=== PATIENT | male | born 1955 | race Caucasian/White ===

== ENCOUNTER 2021-03-09 17:43 | Emergency (ER) | payer OTHER, MEDICARE ==
[~2021-03-09 17:43] MED LIST: ACETAMINOPHEN325 MG PO; ALIGN4 MG PO; CABERGOLINE0.5 MG PO; CIALIS5 MG PO; CLOTRIMAZOLE15 GM TOP; COUGHTAB200 MG PO; ELIQUIS2.5 MG PO; ELIQUIS5 MG PO; FLEXERIL10 MG PO; HEPARIN 3010 UNIT/1 IVF; METAMUCIL1 DOSE PO; NEURONTIN400 MG PO; NORMAL SALINE F10 ML IVF; ONDANSETRON ODT4 MG SL; OXAYDO7.5 MG PO; PATANASE30.5 GM; PATIENT'S OWN MED PO; PLAQUENIL200 MG PO; PRINIVIL10 MG PO; SYNTHROID125 MCG PO; TAMSULOSIN HCL0.4 MG PO; TESTOSTERO200 MG/1 M IM
[2021-03-09 18:55] LABS: BASOPHIL 0.6 % (0-2); EOSINOPHIL 2.3 % (0-7); HCT 32.9 % (42.0-52.0); HGB 10.1 g/dl (13.2-18.0); LYMPHOCYTE 16.3 % (15-48); MCH 24.3 pg (25.0-31.0); MCHC 30.7 g/dL (32.0-36.0); MCV 79.3 fL (78.0-100.0); MONOCYTE 8.3 % (0-12); MPV 9.7 fL (6.0-9.5); NEUTROPHIL 70.4 % (41-80); NRBC 0; PLT 345 K/uL (150-400); RBC 4.15 M/uL (4.70-6.00); RDW 20.7 % (11.5-14.0); WBC 13.5 K/uL (4.0-10.5)
[2021-03-09 19:06] LABS: ALBUMIN 3.2 g/dL (3.4-5.0); BILIRUBIN - TOTAL 0.6 mg/dL (0.2-1.0); BUN/CREAT RATIO (CALC) 13.4 RATIO; CREATININE 0.67 mg/dL (0.67-1.17); GLOBULIN (CALCULATION) 3.5 g/dL; POTASSIUM 3.7 mmol/L (3.5-5.1); TOTAL PROTEIN 6.7 g/dL (6.4-8.2)
[2021-03-09 20:42] LABS: BILIRUBIN NEGATIVE (NEGATIVE); BLOOD NEGATIVE Ery/uL (NEGATIVE); CLARITY CLEAR (CLEAR); COLOR YELLOW (YELLOW); GLUCOSE (U) NORMAL (NORMAL); LEUKOCYTES NEGATIVE Leu/uL (NEGATIVE); NITRITE NEGATIVE (NEGATIVE); PROTEIN NEGATIVE (NEGATIVE); SPECIFIC GRAVITY 1.015 (1.001-1.030); UROBILINOGEN 0.2 mg/dL (0.2-1.0); pH 6.5 (5.0-9.0)
[2021-03-09 20:52] LABS: LACTIC ACID 1.5 mmol/L (0.4-1.9)
[2021-03-27] MEDS ORDERED: ELIQUIS5 MG PO (15:47)
[2021-03-27] MEDS ORDERED: CABERGOLINE0.5 MG PO (15:48)
[2021-03-27] MEDS ORDERED: PRILOSEC20 MG PO (15:51)
[2021-03-27] MEDS ORDERED: CYANOCOBAL1000 MCG/1 IM (15:51)
[2021-03-27] MEDS ORDERED: MORPHINE IJ (16:15)
== END 2021-03-09 22:57 | disposition home or self-care (01) ==
LOC: FER 17:43
PROVIDERS: Emergency Medicine; Emergency Medicine Emergency Medical Services
DX: R20.2 Paresthesia of skin (principal); R53.83 Other fatigue; R53.81 Other malaise; Z85.038 Personal history of other malignant neoplasm of large intestine; Z90.49 Acquired absence of other specified parts of digestive tract; Z88.6 Allergy status to analgesic agent
CPT/HCPCS: 36415; 70450; 71045; 80053; 81003; 83605; 83735; 84145; 84484; 85025; 93005; J7030; J7120

== ENCOUNTER → 2021-03-30 | Day surgery (SDC) | payer MEDICARE, OTHER ==
[~2021-03-30] VITALS: Ht 182.9 cm; Wt 114.3 kg
[~2021-03-30] MED LIST changes: +CYANOCOBAL1000 MCG/1 IM; +MORPHINE IJ; +PRILOSEC20 MG PO
[2021-03-30 11:42] LABS: INR 1.11 (0.9-1.2); PROTHROMBIN TIME 13.7 SECONDS (11.8-13.4); PTT 29.5 SECONDS (24.4-34.7)
== END | disposition home or self-care (01) ==
LOC: FAS 09:51
PROVIDERS: Anesthesiology
DX: C18.6 Malignant neoplasm of descending colon (principal); Z79.01 Long term (current) use of anticoagulants; I82.403 Acute embolism and thrombosis of unspecified deep veins of lower extremity, bilateral; I26.99 Other pulmonary embolism without acute cor pulmonale; D63.0 Anemia in neoplastic disease; E53.8 Deficiency of other specified B group vitamins; E11.42 Type 2 diabetes mellitus with diabetic polyneuropathy; K21.9 Gastro-esophageal reflux disease without esophagitis; K76.0 Fatty (change of) liver, not elsewhere classified; I10 Essential (primary) hypertension; E03.9 Hypothyroidism, unspecified; Z79.82 Long term (current) use of aspirin
CPT/HCPCS: 36415; 71045; 76000; 85610; 85730; C1788; J0690; J1644; J1885; J2250; J2405; J2704; J3010; J7120